=== PATIENT | female | born 1975 | race Caucasian/White ===

== ENCOUNTER 2021-09-02 08:22 | Emergency (ER) | payer BC, SELFPAY ==
[2021-09-02 08:34] VITALS: BP 117/81; PULSE 73; RESP 16; TEMP 36.4; O2SAT 98
--- NOTE | 2021-09-02 08:36 | ED.GENADULT ---
HPI - General Adult General Chief complaint: Abdominal Pain Stated complaint: abd /nechk pain Time Seen by Provider: 09/02/21 08:36 Source: patient and RN notes reviewed Mode of arrival: ambulatory Limitations: no limitations History of Present Illness HPI narrative: 46-year-old female presents to [facility] with complaints of abdominal pain, bloating, nausea and vomiting. States it started yesterday. Reports pain similar to contractions. Denies . Denies any urinary symptoms. Thought she had gas has taken Imodium. But reports having normal bowel movements. Also has taken medication for a yeast infection which has not gotten any better since yesterday. Related Data Home Medications Medication Instructions Recorded Confirmed sertraline 50 mg PO DAILY 09/02/21 09/02/21 Allergies Allergy/AdvReac Type Severity Reaction Status Date / Time nitrofurantoin Allergy Hives Verified 09/02/21 08:45 [From Macrobid] Sulfa (Sulfonamide Allergy Hives Verified 09/02/21 08:44 Antibiotics) Review of Systems Review of Systems: All systems reviewed & are unremarkable except as noted in HPI and below Constitutional: Constitutional: Reports no additional constitutional complaints, Denies chills and Denies fever(s) Eyes: Eyes: Reports no additional eye complaints ENT: Reports system reviewed and no additional complaints, except as documented Cardiovascular: Cardiovascular: Reports no additional cardiovascular complaints Respiratory: Respiratory: Reports no additional respiratory complaints Gastrointestinal: Gastrointestinal: Reports as per HPI, Reports abdominal pain, Denies constipation, Denies diarrhea, Reports nausea and Reports vomiting Genitourinary: Genitourinary: Reports no additional female genitourinary complaints, Denies hematuria, Denies dysuria, Denies urinary incontinence and Reports vaginal discharge Musculoskeletal: Musculoskeletal: Reports no additional musculoskeletal complaints Integumentary/Breasts: Skin/Breast: Reports system reviewed and no additional complaints, except as docu Neurologic: Reports system reviewed and no additional complaints, except as documented Psychiatric: Psychiatric: Reports no additional psychiatric complaints Allergic/Immunologic: Allergic/Immunologic: Reports no additional allergic/immunologic complaints PMFSH Past Medical History Medical History (Updated 09/02/21 @ 08:58 by Angie Johnson APRN) Depression Surgical History Surgical History (Updated 09/02/21 @ 08:55 by Angie Johnson APRN) Hx of cholecystectomy Social History Social History (Updated 09/02/21 @ 08:55 by Angie Johnson APRN) Living arrangements: with family Gender identity (if verbalized by the patient): Female Comments At the time of my signature, I reviewed and agree with the nursing past medical, surgical, social, and family history. There is no relevant family history pertinent to the patient complaint. Exam Const: General: healthy appearing, no acute distress and alert Nutritional Appearance: well nourished Orientation/consciousness: patient oriented x3 Limitations: no limitations HENMT: Head: normal to inspection Ears: external ears normal Eyes: Pupils: Equal, round and reactive pupils present Neck: Neck: normal visual inspection, no lymphadenopathy and no meningeal signs Chest: Chest palpation & inspection: normal inspection of the chest Resp: Effort & Inspection: normal respiratory effort and no use of accessory muscles Auscultation: clear to auscultation bilaterally, no crackles, no rales, no rhonchi and no wheezes Cardio: Rate: regular rate Rhythm: regular rhythm GI: GI Palp: Yes Soft to palpation, Yes Tenderness to palpation present (GI), Yes Guarding due to palpation present (GI) and Yes Rebound tenderness present (Right lower quadrant) Auscultation: normal bowel sounds Back/Spine/Pelvis: Back: no CVA tenderness Skin: General skin exam: normal c
== END 2021-09-02 08:52 | disposition short-term general hospital (02) ==
PROVIDERS: Emergency Provider Nurse Practitioner; PCP Family Medicine
DX: R10.31 Right lower quadrant pain (principal); F32.9 Major depressive disorder, single episode, unspecified
CPT/HCPCS: 81003; 99202; G0463